=== PATIENT | male | born 1990 | race American Indian/Alaskan Native ===

== ENCOUNTER 2019-02-21 15:31 | Emergency (ER) | payer SELFPAY ==
--- NOTE | 2019-02-21 16:11 | Event Note ---
ED Screening Note ED Screening Note: yesterday right foot swelling and pain no fall or injury never happened before no pmhx allergy: iodine This initial assessment/diagnostic orders/clinical plan/treatment(s) is/are subject to change based on patients health status, clinical progression and re- assessment by fellow clinical providers in the ED. Further treatment and workup at subsequent clinical providers discretion. Patient/guardian urged not to elope from the ED as their condition may be serious if not clinically assessed and managed. Initial orders include: XR of the right foot
--- NOTE | 2019-02-21 16:55 | XRay Report ---
RIGHT FOOT 3 VIEWS INDICATION / CLINICAL INFORMATION: right foot pain/edema. COMPARISON: None available. FINDINGS: No fracture, dislocation or soft tissue swelling is seen within the right foot. 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 Signer Name: North Chadwick MD Signed: 02/21/2019 4:51 PM Workstation Name: [id number]
--- NOTE | 2019-02-21 19:49 | Emergency Department Report ---
HPI - General Chief Complaint: Extremity Problem,Nontraumatic Time Seen by Provider: 02/21/19 16:08 - HPI HPI: Room 32 The patient is 28-year-old male presenting with a chief complaint foot pain and swelling. Patient states yesterday he awakened with pain and swelling to the right foot. Patient states pain increased throughout the day. Patient states today the pain had worsened and he noticed redness to the sole and he was unable to bear weight. Patient states his swelling has decreased she's been in the ED is now able to to apply pressure when he is wearing his boot. She denies any preceding injury. Patient denies any previous episodes of same. Patient denies pain in the toes. Location: [See above] Duration: [See above] Quality: [See above] Severity: [See above] Timing: [See above] Context: [See above] Modifying factors: [See above] Associated signs and symptoms: [see above] ED Past Medical Hx - Past Medical History Previous Medical History?: No - Surgical History Past Surgical History?: No - Family History Family history: no significant - Social History Smoking Status: Former Smoker (none times over 3 years) Substance Use Type: Alcohol (rarely), Marijuana - Medications Home Medications: Home Medications Medication Instructions Recorded Confirmed Last Taken Type HYDROcodone/APAP 5-325 [[place] 1 - 2 each PO Q6HR PRN #10 tablet 02/21/19 Unknown Rx 5/325] Ibuprofen [Motrin 800 MG tab] 800 mg PO Q8HR PRN #20 tablet 02/21/19 Unknown Rx ED Review of Systems ROS: Stated complaint: RT FOOT SWOLLEN Other details as noted in HPI Constitutional: no symptoms reported Musculoskeletal: myalgia Skin: change in color Physical Exam - Physical Exam Vital Signs: Vital Signs 02/21/19 16:15 Temperature 98.8 F Pulse Rate 67 Respiratory 16 Rate Blood Pressure 127/83 [Left] O2 Sat by Pulse 96 Oximetry Physical Exam: GENERAL: The patient is well-developed well-nourished []. [] HEENT: Normocephalic. Atraumatic. Extraocular motions are intact. Patient has moist mucous membranes. NECK: Supple. Trachea midline CHEST/LUNGS: There is no respiratory distress noted. HEART/CARDIOVASCULAR: Regular. There is no tachycardia. 2+ right DP SKIN: There is mild erythema to the sole of the right foot. No evidence of cellulitis. No drainage. No lacerations or ulcerations seen NEURO: The patient is awake, alert, and oriented. The patient is cooperative. The patient has normal speech MUSCULOSKELETAL: There is tenderness to palpation along the sole of the right foot. No regions of fluctuance ED Course Vital Signs 02/21/19 16:15 Temperature 98.8 F Pulse Rate 67 Respiratory 16 Rate Blood Pressure 127/83 [Left] O2 Sat by Pulse 96 Oximetry ED Medical Decision Making - Radiology Data Radiology results: report reviewed (right foot x-ray) - Differential Diagnosis plantar fasciitis, heel spur Critical care attestation.: If time is entered above; I have spent that time in minutes in the direct care of this critically ill patient, excluding procedure time. ED Disposition Clinical Impression: Plantar fasciitis of right foot Disposition: TO HOME OR SELFCARE Is pt being admited?: No Does the pt Need Aspirin: No Condition: Stable Instructions: Plantar Fasciitis (ED) Additional Instructions: Return to the emergency department should you develop worsening symptoms, inability to tolerate food or liquids, high fever or any other concerns Prescriptions: Ibuprofen [Motrin 800 MG tab] 800 mg PO Q8HR PRN #20 tablet PRN Reason: Pain, Moderate (4-6) HYDROcodone/APAP 5-325 [[place] 5/325] 1 - 2 each PO Q6HR PRN #10 tablet PRN Reason: Pain Referrals: KELSI GARVEY DPM [Staff Physician] - CHRISTINE (Dr. Garvey is a public welfare worker. Please follow up with him for further evaluation) MARIELA MASTERSON MD [Staff Physician] - 3-5 Days (Dr Masterson is a primary physician. Please follow up with him to be established as a patient) Time of Disposition: 19:52
[2019-02-21 21:02] VITALS: BP 125/88
== END 2019-02-21 21:01 | disposition home or self-care (01) ==
LOC: ED 15:31
DX: M72.2 Plantar fascial fibromatosis (principal); F12.10 Cannabis abuse, uncomplicated; Z87.891 Personal history of nicotine dependence; Z79.899 Other long term (current) drug therapy

== ENCOUNTER 2019-04-18 08:34 | Emergency (ER) | payer SELFPAY ==
[2019-04-18 09:12] VITALS: BP 141/89
[2019-04-18] MEDS ORDERED: KETOROLAC 60 MG/2 ML INJ IM ONE (12:23)
[2019-04-18] MEDS ORDERED: HYDROcodone/ACETAMINOPHEN 10-325MG TAB PO ONE (12:23)
--- NOTE | 2019-04-18 12:54 | XRay Report ---
RIGHT WRIST 3 VIEWS INDICATION / CLINICAL INFORMATION: Right wrist pain for 3 days without known injury. COMPARISON: None available. FINDINGS: BONES / JOINT(S): The lunate is diffusely sclerotic and demonstrates subchondral cystic change and mi ld fragmentation. The other carpal bones are normal. There is no evidence of acute fracture or disloc ation. SOFT TISSUES: No significant abnormality. ADDITIONAL FINDINGS: None. 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 Signer Name: Kurtis Vides MD Signed: 04/18/2019 12:49 PM Workstation Name: [id number]
--- NOTE | 2019-04-18 13:38 | Emergency Department Report ---
ED Upper Extremity Inj HPI - General Chief Complaint: Extremity Injury, Upper Stated Complaint: RT WRIST PAIN Time Seen by Provider: 04/18/19 11:36 Source: patient Mode of arrival: Ambulatory Limitations: No Limitations - History of Present Illness Initial Comments: This is a 28-year-old male nontoxic, well nourished in appearance, no acute signs of distress presents to the ED with c/o of right wrist pain 2 days. Patient denies any injuries or trauma. Patient denies any numbness, tingling, fever, chills, nausea, vomiting, chest pain, shortness of breath, headache, stiff neck. Patient denies any joint swelling or joint redness. Patient has some decreased range of motion. Patient stated allergies to iodine. Denies any significant PMH. MD Complaint: Injury to:: right, wrist -: days(s) Other Extremity Injury: Wrist: Right Severity scale (0 -10): 8 Improves With: none Worsens With: none Associated Symptoms: denies other symptoms. denies: weakness, numbness, neck pa in, suspects foreign body, nausea/vomiting, heard/felt popping sensat - Related Data Previous Rx's Medication Instructions Recorded Last Taken Type HYDROcodone/APAP 5-325 [[place] 1 - 2 each PO Q6HR PRN #10 tablet 02/21/19 Unknown Rx 5/325] Ibuprofen [Motrin 800 MG tab] 800 mg PO Q8HR PRN #20 tablet 02/21/19 Unknown Rx Naproxen 500 mg PO Q12H #14 tablet 04/18/19 Unknown Rx Allergies Allergy/AdvReac Type Severity Reaction Status Date / Time iodine Allergy Anaphylaxis Verified 04/18/19 09:06 shellfish derived Allergy Anaphylaxis Verified 04/18/19 09:06 ED Review of Systems ROS: Stated complaint: RT WRIST PAIN Other details as noted in HPI Constitutional: denies: chills, fever Eyes: denies: eye pain, eye discharge, vision change ENT: denies: ear pain, throat pain Respiratory: denies: cough, shortness of breath, wheezing Cardiovascular: denies: chest pain, palpitations Endocrine: no symptoms reported Gastrointestinal: denies: abdominal pain, nausea, diarrhea Genitourinary: denies: urgency, dysuria Musculoskeletal: denies: back pain, joint swelling, arthralgia Skin: denies: rash, lesions Neurological: denies: headache, weakness, paresthesias Psychiatric: denies: anxiety, depression Hematological/Lymphatic: denies: easy bleeding, easy bruising ED Past Medical Hx - Past Medical History Previous Medical History?: No - Surgical History Past Surgical History?: Yes Additional Surgical History: neck surgery for abcess. cyst removed from above eye - Social History Smoking Status: Never Smoker Substance Use Type: Marijuana - Medications Home Medications: Home Medications Medication Instructions Recorded Confirmed Last Taken Type HYDROcodone/APAP 5-325 [[place] 1 - 2 each PO Q6HR PRN #10 tablet 02/21/19 Unknown Rx 5/325] Ibuprofen [Motrin 800 MG tab] 800 mg PO Q8HR PRN #20 tablet 02/21/19 Unknown Rx Naproxen 500 mg PO Q12H #14 tablet 04/18/19 Unknown Rx ED Physical Exam - General Limitations: No Limitations General appearance: alert, in no apparent distress - Head Head exam: Present: atraumatic, normocephalic - Extremities Exam Extremities exam: Present: normal inspection, full ROM, tenderness, normal capillary refill. Absent: joint swelling - Expanded Upper Extremity Exam Right General: Present: normal inspection Shoulder Exam: Present: normal inspection, full ROM. Absent: tenderness, swelling Upper Arm exam: Present: normal inspection, full ROM. Absent: tenderness, swe lling Elbow exam: Present: normal inspection, full ROM. Absent: tenderness, swelling Forearm Wrist exam: Present: normal inspection, full ROM. Absent: tenderness, swelling, abrasion, laceration, ecchymosis, deformity, crepidus, dislocation, erythema, tenderness over anatomical snuff box, pain with axial thumb loading Hand Wrist exam: Present: normal inspection, full ROM, tenderness. Absent: swelling, abrasion, laceration, ecchymosis, deformity, crepidus, dislocation, erythema, amputation, nail avulsion, subungual hematoma Vascular: Present: vascular compromise, normal capillary refill - Back Exam Back exam: Present: normal inspection, full ROM - Neurological Exam Neurological exam: Present: alert, oriented X3, normal gait - Psychiatric Psychiatric exam: Present: normal affect, normal mood - Skin Skin exam: Present: warm, dry, intact, normal color. Absent: rash ED Course Vital Signs 04/18/19 04/18/19 09:07 12:48 Temperature 98.0 F Pulse Rate 98 H Respiratory 16 18 Rate Blood Pressure 141/89 O2 Sat by Pulse 97 Oximetry - Reevaluation(s) Reevaluation #1: 04/18/19 13:40 Patient is speaking in full sentences with no signs of distress noted. - Consultations Consultation #1: 04/18/19 13:40 Patient has been consulted with Dr. Walton and Dr. Garrison about patient history, physical exam, and x-ray results agrees to ED plan of care with providing wrist immobilizer splint and discharged with naproxen with follow-up. ED Medical Decision Making - Medical Decision Making This is a 28-year-old male that presents with right wrist kienbock's disease. Patient is stable and was examined by me. I referred patient to an orthopedic doctor for further evaluation for possible MRI. X-ray has been obtained and dictated by the radiologist. PAtient was consuilted with Dr. Walton and images of xrays has been sent and stated patient can be disdcharged with follow-up. Patient is notified of the x-ray report with noted by the patient. Patient does have normal gait with no tenderness and no joint swelling. No ecchymosis. no joint redness or swelling. Not warm to touch. No signs of cellulites present. Patient received a wrist immobilizer. Patient was instructed to RICE therapy. Patient received Toradol and [place] for pain and stated family member will drive the patient home due to possible drowsiness. Patient is discharged with Naproxen. At time of discharge, the patient does not seem toxic or ill in appearance. No acute signs of distress noted. Patient agrees to discharge treatment plan of care. No further questions noted by the patient. Critical care attestation.: If time is entered above; I have spent that time in minutes in the direct care of this critically ill patient, excluding procedure time. 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 Prescriptions: Naproxen 500 mg PO Q12H #14 tablet Referrals: PRIMARY CARE, [Primary Care Provider] - 3-5 Days [facility] [Outside] - 3-5 Days JANNETTE WALTON MD [Staff Physician] - 04/20/19 Forms: Work/School Release Form(ED)
== END 2019-04-18 14:11 | disposition home or self-care (01) ==
LOC: ED 08:34
DX: M93.1 Kienbock's disease of adults (principal); F12.10 Cannabis abuse, uncomplicated; Z98.890 Other specified postprocedural states; Z79.1 Long term (current) use of non-steroidal anti-inflammatories (NSAID); Z79.899 Other long term (current) drug therapy; Z91.013 Allergy to seafood; Z88.8 Allergy status to other drugs, medicaments and biological substances
CPT/HCPCS: 29125; 73110; 96372; 99283; J1885